=== PATIENT | female | born 1970 | race Caucasian/White ===

== ENCOUNTER 2022-06-25 07:10 | Day surgery (SDC) | payer OTHER ==
[~2022-06-25] VITALS: Ht 157.5 cm; Wt 70.3 kg
[2022-06-25] MEDS ORDERED: diphenhydrAMINE 50 MG/ML VIAL ONE (07:21)
[2022-06-25] MEDS ORDERED: LIDOCAINE 2% 100 MG/5 ML UJET TP ONE (07:21)
[2022-06-25] MEDS ORDERED: fentaNYL citrate 0.05 MG/ML VIAL ONE (07:21)
[2022-06-25] MEDS ORDERED: MIDAZOLAM 5 MG/5 ML VIAL ONE (07:21)
[2022-06-25] MEDS ORDERED: MIDAZOLAM 5 MG/5 ML VIAL IV ONE (08:15)
[2022-06-25] MEDS ORDERED: fentaNYL citrate 0.05 MG/ML VIAL IVP ONE (08:15)
== END 2022-06-25 08:40 | disposition home or self-care (01) ==
LOC: MOR 07:10 → MMU 07:11 → MOR 08:40
PROVIDERS: ATTEND Internal Medicine Gastroenterology
DX: Z12.11 Encounter for screening for malignant neoplasm of colon (principal); Z90.710 Acquired absence of both cervix and uterus; Z20.822 Contact with and (suspected) exposure to COVID-19
CPT/HCPCS: 45378; 87426; J2250; J3010; J1200